=== PATIENT | male | born 1990 | race Caucasian/White ===

== ENCOUNTER 2016-12-22 14:21 | Emergency (ER) | payer OTHER ==
[~2016-12-22] VITALS: Wt 101.0 kg
[2016-12-22] MEDS ORDERED: ACETAMINOPHEN 500 MG TAB PO STA (16:50)
--- NOTE | 2016-12-22 17:27 | ERD ---
ER Documentation Chief Complaint Date/Time DATE: 12/22/16 TIME: 17:25 Chief Complaint RECHECK OF LAC HPI 26-year-old male comes in for winter for lacerations of both of his hands occurred 2 days ago. He was seen here 2 days ago had a CT scan of the brain due to her mental status. He had an episode where he states that he does not recall exactly what happened. He denies pain to his hands, drainage or fevers or chills. ROS All systems reviewed and are negative except as per history of present illness. Medications Home Meds Unable to Obtain Active Prescriptions or Reported Meds Allergies Allergies: Coded Allergies: No Known Allergy (Unverified , 12/19/16) PMhx/Soc Medical and Surgical Hx: pt denies Medical Hx, pt denies Surgical Hx Hx Psychiatric Problems: Yes Hx Alcohol Use: No Hx Substance Use: Yes Hx Tobacco Use: Yes Smoking Status: Current every day smoker Physical Exam Vitals Vital Signs Date Time Temp Pulse Resp B/P Pulse Ox O2 Delivery O2 Flow Rate FiO2 12/22/16 14:37 98.0 120 18 132/83 99 Physical Exam General: Well-developed, well-nourished. The patient appears in no acute distress. HEENT: Head is normocephalic, atraumatic. No scleral icterus. Neck: Supple. Nontender. Lungs: Clear to auscultation. Normal air movement. Heart: Regular rate and rhythm. S1 and S2 are normal. No murmurs, gallops, or rubs. Abdomen: Nondistended. Extremities: Left second digit has medial laceration is about 3 cm, without dehiscence, erythema or drainage. The right fourth digit proximal laceration, about 2.5 cm with sutures intact no dehiscence or erythema, wounds are clean dry and intact. Patient is able to make a fist, sensation is intact distally, capillary refill less than 2 seconds. No clubbing or cyanosis. Moving extremities x 4. No weakness. Neurologic: Alert and oriented 3. No focal deficits. Normal speech and gait. Skin: Normal turgor. No rash or lesions. Results 24 hrs Current Medications Medications (Trade) Dose Ordered Sig/Aidee Route PRN Reason Start Time Stop Time Status Last Admin Dose Admin Acetaminophen (Tylenol Tab) 1,000 mg ONCE STAT PO 12/22/16 16:50 12/22/16 16:51 DC 12/22/16 16:55 Procedures/MDM Course: Wound care was done, irrigation as well as application of Steri-Strips and clean dressing and gauze. Wound shows no evidence of infection, foreign body, neurologic injury, vascular injury, open joint or tendon laceration. Patient appropriate for outpatient follow up. Departure Diagnosis: Primary Impression: Encounter for wound re-check Condition: Good Patient Instructions: Wound Check, Lac F/U (No Infection) Additional Instructions: Follow up with your physician to remove the stitches: in 6 days. VICKY MAGANA PA-C Dec 22, 2016 17:27
== END 2016-12-22 16:58 | disposition home or self-care (01) ==
LOC: FTE 14:21
DX: Z48.01 Encounter for change or removal of surgical wound dressing (principal); F17.210 Nicotine dependence, cigarettes, uncomplicated
CPT/HCPCS: Z7502; Z7610; 99282

== ENCOUNTER 2016-12-31 14:09 | Emergency (ER) | payer SELFPAY ==
[~2016-12-31] VITALS: Ht 175.3 cm; Wt 99.0 kg
[2016-12-31 14:13] VITALS: Ht 175.3 cm; Wt 99.0 kg
== END 2016-12-31 16:05 | disposition left against medical advice (07) ==
LOC: E/R 14:09 → FTE 16:05
DX: Z53.21 Procedure and treatment not carried out due to patient leaving prior to being seen by health care provider (principal)

== ENCOUNTER 2018-06-23 18:41 | Inpatient (IN) | payer OTHER ==
[~2018-06-23] VITALS: Ht 185.4 cm; Wt 106.0 kg
[2018-06-23] MEDS ORDERED: SOD CHLORIDE 0.9% 1,000 ML IV STA (20:14)
[2018-06-23] MEDS ORDERED: OLANZAPINE (ODT) 5 MG TAB ODT STA (20:14)
[2018-06-23] MEDS ORDERED: HYDROCODONE/APAP (5/325) TAB PO ONE (20:30)
[2018-06-23] MEDS ORDERED: PIPER-TAZO 3.375 GM IV (PMX) 100 ML IVPB STA (22:28)
[2018-06-23] MEDS ORDERED: SOD CHLORIDE 0.9% 1,000 ML IV SCH (22:34)
--- NOTE | 2018-06-23 22:39 | ERD ---
ER Documentation Chief Complaint Chief Complaint AP X WEEKS HPI This is a 27-year-old male with no previous medical problems who presents to the emergency room for evaluation of abdominal pain. The patient states that he has had abdominal pain on and off for the past 2 weeks however his pain got worse over the past 24 hours. The patient localizes the pain to the right portion of his abdomen and states it is an achy pain associate with mild nausea no vomiting. The patient denies any fevers or chills or diarrhea associated with this pain. The patient came to the ER today for evaluation of his symptoms. ROS All systems reviewed and are negative except as per history of present illness. Medications Home Meds Unable to Obtain Active Prescriptions or Reported Meds Allergies Allergies: Coded Allergies: No Known Allergy (Unverified , 12/19/16) PMhx/Soc Medical and Surgical Hx: pt denies Medical Hx, pt denies Surgical Hx Hx Psychiatric Problems: Yes Hx Alcohol Use: No Hx Substance Use: Yes Hx Tobacco Use: Yes Smoking Status: Light tobacco smoker Physical Exam Vitals Vital Signs Date Temp Pulse Resp B/P (MAP) Pulse Ox O2 O2 Flow FiO2 Time Delivery Rate 06/23/18 97.7 89 20 167/89 99 19:00 (115) Physical Exam INITIAL VITAL SIGNS: Reviewed by me GENERAL: The patient is well developed and appropriate for usual state of health in no apparent distress HEENT: Pupils equal, round, and reactive to light. EOMI. There is no scleral icterus. NECK: C-spine is soft and supple, there is no meningismus. There is no cerv ical lymphadenopathy. LUNGS: Clear to auscultation bilaterally. There are no rales, wheezes or rhon chi. HEART: Regular rate and rhythm, no murmurs, clicks, rubs or gallops. ABDOMEN: Right lower quadrant tenderness to palpation, bowel sounds in all 4 quadrants. EXTREMITIES: There is no peripheral cyanosis or edema. No focal swelling or erythema. NEUROLOGICAL: The patient moves all four extremities with 5/5 strength. Cranial nerves II - XII are intact. Normal gait. Alert and oriented SKIN: There is no apparent rash or petechiae. HEME/LYMPHATIC: There is no evidence of excessive bruising or lymphedema. PSYCHIATRIC: The patient does not appear anxious or depressed. Result Diagram: 06/23/18201806/23/182018 Results 24 hrs Laboratory Tests Test 06/23/18 20:19 White Blood Count 17.2 10^3/ul Red Blood Count 5.42 10^6/ul Hemoglobin 17.4 g/dl Hematocrit 48.5 % Mean Corpuscular Volume 89.5 fl Mean Corpuscular Hemoglobin 32.1 pg Mean Corpuscular Hemoglobin Concent 35.9 g/dl Red Cell Distribution Width 10.8 % Platelet Count 209 10^3/UL Mean Platelet Volume 11.1 fl Immature Granulocytes % 0.600 % Neutrophils % 80.1 % Lymphocytes % 13.7 % Monocytes % 4.0 % Eosinophils % 1.2 % Basophils % 0.4 % Nucleated Red Blood Cells % 0.0 /100WBC Immature Granulocytes # 0.110 10^3/ul Neutrophils # 13.8 10^3/ul Lymphocytes # 2.4 10^3/ul Monocytes # 0.7 10^3/ul Eosinophils # 0.2 10^3/ul Basophils # 0.1 10^3/ul Nucleated Red Blood Cells # 0.0 10^3/ul Urine Color JEREMIAH Urine Clarity TURBID Urine pH 7.0 Urine Specific [place] 1.024 Urine Ketones NEGATIVE mg/dL Urine Nitrite NEGATIVE mg/dL Urine Bilirubin NEGATIVE mg/dL Urine Urobilinogen 1+ mg/dL Urine Leukocyte Esterase NEGATIVE Eunice/ul Urine Microscopic RBC 3 /HPF Urine Microscopic WBC 0 /HPF Urine Hemoglobin NEGATIVE mg/dL Urine Glucose NEGATIVE mg/dL Urine Total Protein NEGATIVE mg/dl Sodium Level 144 mmol/L Potassium Level 4.5 mmol/L Chloride Level 105 mmol/L Carbon Dioxide Level 25 mmol/L Anion Gap 14 Blood Urea Nitrogen 13 mg/dl Creatinine 1.04 mg/dl Est Glomerular Filtrat Rate mL/min > 60 mL/min Glucose Level 109 mg/dl Calcium Level 10.5 mg/dl Total Bilirubin 0.3 mg/dl Direct Bilirubin 0.00 mg/dl Indirect Bilirubin 0.3 mg/dl Aspartate Amino Transf (AST/SGOT) 45 IU/L Alanine Aminotransferase (ALT/SGPT) 111 IU/L Alkaline Phosphatase 70 IU/L Total Protein 8.2 g/dl Albumin 5.0 g/dl Globulin 3.20 g/dl Albumin/Globulin Ratio 1.56 Lipase 96 U/L Current Medications Medications Dose Sig/Aidee Start Time Status Last (Trade) Ordered Route PRN Stop Time Admin Dose Reason Admin 1 tab ONCE ONCE 06/23/18 DC 06/23/18 Acetaminophen PO 20:30 22:10 / 06/23/18 20:31 Hydrocodone Bitart ([place] (5/325)) Sodium 1,000 ml @ Q1H STAT 06/23/18 DC 06/23/18 Chloride 1,000 mls/hr IV 20:14 22:11 06/23/18 21:13 Olanzapine 10 mg ONCE STAT 06/23/18 DC 06/23/18 (Zyprexa ODT 20:14 22:10 Zydis) 06/23/18 20:15 Piperacillin 100 ml @ ONCE STAT 06/23/18 Sod/ 200 mls/hr IVPB 22:28 Tazobactam 06/23/18 22:57 Sod Procedures/MDM CT abdomen pelvis without : 1. The base of the body of the appendix are unremarkable. There is minimal dilatation of the tip of the appendix which measures 8 mm. There is no significant periappendiceal inflammation. The overall appearance is likely within normal limits; however a very mild / early tip appendicitis cannot be completely excluded and clinical correlation is advised. 2. No free fluid, free air, abscess. 3. Fatty change of the liver This 27-year-old male presents to the ER for evaluation of abdominal pain. On my exam the patient had tenderness to palpation in the right lower quadrant. He was originally seen in fast track area and after CAT scan was transition to the main emergency room. On my exam the patient did have tenderness palpation in the right lower quadrant. He does have a leukocytosis. And CT does show what could be early appendicitis. I have spoken to our general surgeon internal combustion engine assembler Dr. Willett have written the case by him. He states that he will evaluate the patient. The patient is stable and will be admitted to our panel physician Dr. Murphy. Critical Care: Excluding all billable procedures Time: 33 minutes Treatments/Evaluations: Close monitoring and treatment of unstable vital signs, cardiorespiratory, and neurologic status, while maintaining tight balance of fluid, respiratory, and cardiac interventions. Departure Diagnosis: Primary Impression: Acute appendicitis Additional Impression: Abdominal pain Condition: Stable STEPHANIEVICENTA CHAUDHARYANTON SCHUMACHER Jun 23, 2018 22:39
[2018-06-23] MEDS ORDERED: ONDANSETRON 4 MG INJ IV PRN ×2 (23:00→23:30)
[2018-06-23] MEDS ORDERED: ACETAMINOPHEN 325 MG TAB PO PRN ×2 (23:00→23:30)
--- NOTE | 2018-06-23 23:14 | HP ---
Date/Time of Note Date/Time of Note DATE: 06/23/18 TIME: 23:11 Assessment/Plan VTE Prophylaxis SCD applied (from Nsg): Yes Pharmacological prophylaxis: NA/contraindicated Pharm contraindication: low risk/ambulating Lines/Catheters IV Catheter Type (from Nrsg): Saline Lock Assessment/Plan Hospital Course This is a 27 year old male being admitted to the med surg floor for: #1 suspect early appendicitis: NPO except meds, Normal saline maintenence fluids, zosyn 3.375 mg iv q 6hrs. Pain control. Dr. Willett consulted by the ER. #2 Obesity: check a1c, tsh, lipids #3 DVT GI prophylaxis: SCDs, no GI prophylaxis indicated Further treatment strategy will be implemented as per the clinical course Result Diagram: 06/23/18201806/23/182018 Results 24hrs Laboratory Tests Test 06/23/18 20:19 White Blood Count 17.2 H Red Blood Count 5.42 Hemoglobin 17.4 Hematocrit 48.5 Mean Corpuscular Volume 89.5 Mean Corpuscular Hemoglobin 32.1 Mean Corpuscular Hemoglobin Concent 35.9 Red Cell Distribution Width 10.8 L Platelet Count 209 Mean Platelet Volume 11.1 H Immature Granulocytes % 0.600 H Neutrophils % 80.1 H Lymphocytes % 13.7 L Monocytes % 4.0 Eosinophils % 1.2 Basophils % 0.4 Nucleated Red Blood Cells % 0.0 Immature Granulocytes # 0.110 H Neutrophils # 13.8 H Lymphocytes # 2.4 Monocytes # 0.7 Eosinophils # 0.2 Basophils # 0.1 Nucleated Red Blood Cells # 0.0 Urine Color JEREMIAH Urine Clarity TURBID A Urine pH 7.0 Urine Specific [place] 1.024 Urine Ketones NEGATIVE Urine Nitrite NEGATIVE Urine Bilirubin NEGATIVE Urine Urobilinogen 1+ H Urine Leukocyte Esterase NEGATIVE Urine Microscopic RBC 3 Urine Microscopic WBC 0 Urine Hemoglobin NEGATIVE Urine Glucose NEGATIVE Urine Total Protein NEGATIVE Sodium Level 144 Potassium Level 4.5 Chloride Level 105 Carbon Dioxide Level 25 Anion Gap 14 H Blood Urea Nitrogen 13 Creatinine 1.04 Est Glomerular Filtrat Rate mL/min > 60 Glucose Level 109 Calcium Level 10.5 H Total Bilirubin 0.3 Direct Bilirubin 0.00 Indirect Bilirubin 0.3 Aspartate Amino Transf (AST/SGOT) 45 Alanine Aminotransferase (ALT/SGPT) 111 H Alkaline Phosphatase 70 Total Protein 8.2 H Albumin 5.0 H Globulin 3.20 Albumin/Globulin Ratio 1.56 Lipase 96 HPI/ROS Admit Date/Time Admit Date/Time Hx of Present Illness cc: ab pain x 2 weeks This is a 27-year-old male with no previous medical problems who presents to the emergency room for evaluation of abdominal pain. The patient states that he has had abdominal pain on and off for the past 2 weeks however his pain got worse over the past 24 hours. The patient localizes the pain to the right portion of his abdomen and states it is an achy pain associate with mild nausea no vom iting. The patient denies any fevers or chills or diarrhea associated with this pain. The patient came to the ER today for evaluation of his symptoms. Allergies: NKDA Medications: None ROS Const: As per HPI Eyes : No pain discharge or redness or change in visual acuity ENT: No pain, sore throat, congestion, congestion, dysphagia or discharge Respiratory: No shortness of breath, cough, sputum, wheezing, or pleuritic pain Cardiovascular: No chest pain, palpitation, PND, or edema GI : as per HPI Genitourinary: No dysuria, hematuria, flank pain , discharge or CVA tenderness Musculoskeletal: No joint pain, back pain, neck pain, restricted range of motion in neck or joints Skin: No rash, bruising or hives Neuro: No headache, dizziness, syncope, seizure, focal weakness Endocrine: No polyuria, polydipsia, temperature intolerance Psych: No hallucination, depression, anxiety or suicidal ideation PMH/Family/Social Past Medical History Medical History: no pertinent history Medications Current Medications Sodium Chloride 1,000 ml @ 80 mls/hr [id number] IV ; Start 06/23/18 at 22:34; Stop 06/24/18 at 11:03 Ondansetron HCl (Zofran Inj) 4 mg BRIDGE ORDER PRN IV NAUSEA/VOMITING; Start 06/23/18 at 23:00; Stop 06/24/18 at 22:59 Acetaminophen (Tylenol Tab) 650 mg ER BRIDGE PRN PO .MILD PAIN 1-3 OR TEMP; Start 06/23/18 at 23:00; Stop 06/24/18 at 22:59 Coded Allergies: No Known Allergy (Unverified , 12/19/16) Past Surgical History Past Surgical Hx: no surgical history Family History Significant Family History: no pertinent family hx Social History Alcohol Use: occasionally Smoking Status: Unknown if ever smoked Drug Use: none Exam/Review of Systems Vital Signs Vitals Vital Signs Date Temp Pulse Resp B/P (MAP) Pulse Ox O2 O2 Flow FiO2 Time Delivery Rate 06/23/18 97.7 89 20 167/89 99 19:00 (115) Exam Exam General: Patient currently lying in bed in no acute distress HEENT: Atraumatic, normocephalic. The pupils are equal, round and reactive. Extraocular motor are intact Neck: Supple with full range of motion. No rigidity or meningismus Chest: Nontender Lungs: Clear to auscultation bilaterally no crackles rales or wheezing Heart: Normal S1-S2, Regular rhythm and rate. Abdomen: Soft , tender to palpation over the right lower quadrant, nondistended , bowel sounds are present. No guarding no rebound tenderness , No masses or organomegaly. No costovertebral temporal angle mass Extremities: Normal to inspection, no edema no cyanosis Neurologic: Normal mental status, speech normal, cranial nerves II through XII are intact, motor and sensory are intact, no focal weakness Additional Comments PROCEDURE: CT abdomen and pelvis without contrast. CLINICAL INDICATION: Right lower quadrant abdominal pain TECHNIQUE: Continues 2.5 mm axial images were obtained from the domes of the diaphragms to the inferior pubic rami. No oral or intravenous contrast was administered. The calculated dose length product (DLP) = 1367.85 mGy-cm. Exam CTDlvol = 20.08 mGy. One or more of the following dose reduction techniques were used: Automated exposure control, adjustment of the mA and or KV according to patient size, or use of iterative reconstruction technique. One or more of the following dose reduction techniques were used: Automated exposure control, adjustment of the mA and or KV according to patient size, or use of iterative reconstruction technique. DICOM images are available. COMPARISON: None. FINDINGS: Lung bases are clear. No pleural pericardial fluid is seen. There is mild fatty change of the liver. Otherwise, liver, gallbladder, pancreas, spleen, adrenals, and kidneys are within normal limits on this noncontrast study. There is no renal calculi or obstructive uropathy. Aorta is normal in caliber. No pathologically enlarged mesenteric lymph nodes are seen. Stomach and small bowel loops are within normal limits. Is no small bowel dilatation or obstruction. No free fluid, free air, abscess is noted in the upper abdomen CT pelvis: Images through the pelvis demonstrate no free fluid, free air, abscess. Bladder is normally distended grossly unremarkable. Prostate and seminal vesicles are within normal limits. Evaluation of the colon demonstrates no diverticulosis, diverticulitis or acute colitis. The appendix is identified. The base of the body and appendix are normal in appearance. The tip of the appendix is minimally dilated measuring 8 mm. There is no significant periappendiceal inflammation. All vessels likely within normal limits, very early mild tip appendicitis cannot be completely excluded. Terminal ileum is unremarkable. There are no pathologically enlarged iliac chain lymph nodes. No destructive bony lesions are seen IMPRESSION: 1. The base of the body of the appendix are unremarkable. There is minimal dilatation of the tip of the appendix which measures 8 mm. There is no significant periappendiceal inflammation. The overall appearance is likely within normal limits; however a very mild / early tip appendicitis cannot be completely excluded and clinical correlation is advised. 2. No free fluid, free air, abscess. 3. Fatty change of the liver RPTAT: HH .Cuco Alaniz MD, Date Time Electronically viewed and signed by .Cuco Alaniz MD, MD on 06/23/2018 21:38 .W/ CC: DONALD BUSTOS PA-C [id number] LOPEZ JOSE Jun 23, 2018 23:14
[2018-06-23] MEDS ORDERED: BISACODYL (EC) 5 MG TAB PO PRN (23:30)
[2018-06-23] MEDS ORDERED: NACL 0.9% 3 ML SYG IV SCH (23:30)
[2018-06-23] MEDS ORDERED: morphine 2 MG INJ IV PRN (23:30)
[2018-06-23] MEDS ORDERED: DOCUSATE SODIUM 100 MG CAP PO PRN (23:30)
[2018-06-24] VITALS (25 sets, daily range): BP systolic 97–187; BP diastolic 55–96; PULSE 58–104; RESP 12–28; Ht 185.4 cm; Wt 106.0 kg
[2018-06-24] MEDS: SOD CHLORIDE 0.9% 1,000 ML IV SCH ×3 (00:56→23:43)
[2018-06-24] MEDS: PIPER-TAZO 3.375 GM IV (PMX) 100 ML IVPB SCH ×4 (04:34→23:42)
--- NOTE | 2018-06-24 11:25 | PN ---
Date/Time of Note Date/Time of Note DATE: 06/24/18 TIME: 11:24 Objective Vitals Vital Signs Date Temp Pulse Resp B/P (MAP) Pulse Ox O2 O2 Flow FiO2 Time Delivery Rate 06/24/18 97.9 58 18 108/55 96 08:10 (72) Intake and Output 06/23/18 06/23/18 06/24/18 1515:00 23:00 07:00 IntakeIntake Total 500 ml BalanceBalance 500 ml Results Result Diagram: 06/24/18 0446 06/24/18 0446 Medications Medications Current Medications Ondansetron HCl (Zofran Inj) 4 mg BRIDGE ORDER PRN IV NAUSEA/VOMITING; Start 06/23/18 at 23:00; Stop 06/24/18 at 22:59 Acetaminophen (Tylenol Tab) 650 mg ER BRIDGE PRN PO .MILD PAIN 1-3 OR TEMP; Start 06/23/18 at 23:00; Stop 06/24/18 at 22:59 Sodium Chloride 1,000 ml @ 100 mls/hr Q10H IV Last administered on 06/24/18at 00:56; Admin Dose 100 MLS/HR; Start 06/23/18 at 23:07 IV Flush (NS 3 ml) 3 ml PER PROTOCOL IV ; Start 06/23/18 at 23:30 Ondansetron HCl (Zofran Inj) 4 mg Q6H PRN IV NAUSEA/VOMITING; Start 06/23/18 at 23:30 Acetaminophen (Tylenol Tab) 650 mg Q6H PRN PO .PAIN 1-3 OR TEMP; Start 06/23/18 at 23:30 Morphine Sulfate (morphine) 2 mg Q4H PRN IV .SEVERE PAIN 7-10 Last administered on 06/24/18at 00:56; Admin Dose 2 MG; Start 06/23/18 at 23:30 Docusate Sodium (Colace) 100 mg Q12H PRN PO .CONSTIPATION; Start 06/23/18 at 23:30 Bisacodyl (Dulcolax) 5 mg DAILY PRN PO .CONSTIPATION; Start 06/23/18 at 23:30 Piperacillin Sod/ Tazobactam Sod 100 ml @ 200 mls/hr Q6 IVPB Last administered on 06/24/18at 04:34; Admin Dose 200 MLS/HR; Start 06/24/18 at 05:00 VTE Prophylaxis Risk score (from Nsg)>0 risk: 1 SCD applied (from [facility] [place]): Yes Lines/Catheters IV Catheter Type: [place] in Place: No Assessment/Plan Hospital Course Subjective Patient states abdominal pain has significantly improved Objective Physical exam General: Patient is laying in bed and answers questions appropriately Mentation: Patient is alert and oriented 4, Head: Normocephalic atraumatic Eyes: EOMI, pupils reactive to light Neck: Supple, nontender, midline Respiratory: Clear to auscultation bilaterally Cardiovascular: regular rate, no obvious murmurs Gastrointestinal: minimal right lower quadrant tenderness to palpation, bowel sounds heard. Neurological: Moves all extremities spontaneously Skin: No new skin lesions Assessment and plan Abdominal pain, possible early appendicitis -N.p.o. -IV fluids -IV Zosyn -Dr. Willett, general surgery consulted by ER Obesity -Monitor, encourage dietary restrictions Disposition -Awaiting general surgery consultation. SONIA MAGANA Jun 24, 2018 11:24
--- NOTE | 2018-06-24 16:15 | PREAC ---
Date/Time of Note Date/Time of Note DATE: 06/24/18 TIME: 16:14 Anesthesia Eval and Record Evaluation Time Pre-Procedure Interview DATE: 06/24/18 TIME: 16:14 Age 27 Sex male NPO: 8 hrs Preoperative diagnosis appendicitis: Planned procedure LAPAROSCOPIC APPENDECTOMY Past Medical History Past Medical History: Includes GI: Obesity Surgery & Anesthesia Issues No known issue Meds Anticoagulation: No Beta Adithya within 24 hr: No Reason Beta Adithya not given: Pt. not on B-Adithya Unable to Obtain Active Prescriptions or Reported Meds Current Medications Ondansetron HCl (Zofran Inj) 4 mg BRIDGE ORDER PRN IV NAUSEA/VOMITING; Start 06/23/18 at 23:00; Stop 06/24/18 at 22:59 Acetaminophen (Tylenol Tab) 650 mg ER BRIDGE PRN PO .MILD PAIN 1-3 OR TEMP; Start 06/23/18 at 23:00; Stop 06/24/18 at 22:59 Sodium Chloride 1,000 ml @ 100 mls/hr Q10H IV Last administered on 06/24/18at 11:37; Admin Dose 100 MLS/HR; Start 06/23/18 at 23:07 IV Flush (NS 3 ml) 3 ml PER PROTOCOL IV ; Start 06/23/18 at 23:30 Ondansetron HCl (Zofran Inj) 4 mg Q6H PRN IV NAUSEA/VOMITING; Start 06/23/18 at 23:30 Acetaminophen (Tylenol Tab) 650 mg Q6H PRN PO .PAIN 1-3 OR TEMP; Start 06/23/18 at 23:30 Morphine Sulfate (morphine) 2 mg Q4H PRN IV .SEVERE PAIN 7-10 Last administered on 06/24/18at 00:56; Admin Dose 2 MG; Start 06/23/18 at 23:30 Docusate Sodium (Colace) 100 mg Q12H PRN PO .CONSTIPATION; Start 06/23/18 at 23:30 Bisacodyl (Dulcolax) 5 mg DAILY PRN PO .CONSTIPATION; Start 06/23/18 at 23:30 Piperacillin Sod/ Tazobactam Sod 100 ml @ 200 mls/hr Q6 IVPB Last administered on 06/24/18at 11:37; Admin Dose 200 MLS/HR; Start 06/24/18 at 05:00 Meds reviewed: Yes Allergies Coded Allergies: No Known Allergy (Unverified , 12/19/16) Allergies Reviewed: Yes Labs/Studies Labs Reviewed: Reviewed by anesthesiologist Result Diagram: 06/24/18 0446 06/24/18 0446 Laboratory Tests 06/24/18 04:46 test: N/A Pre-procedure Exam Last vitals Vital Signs Date Temp Pulse Resp B/P (MAP) Pulse Ox O2 O2 Flow FiO2 Time Delivery Rate 06/24/18 97.9 63 19 97/55 (69) 96 14:00 Airway: Adequate mouth opening Mallampati: Mallampati II Teeth: Normal Lung: Normal Heart: Normal ASA Physical Status ASA physical status: 2 Emergency: None Pre-operative Attestations Prior to commencing anesthesia and surgery, the patient was re-evaluated, there was verification of: *The patient's identity *The results of appropriate recent lab work and preoperative vital signs *The above evaluation not changing prior to induction *Anesthetic plan, risk benefits, alternative and complications discussed with patient/family; questions answered; patient/family understands, accepts and wishes to proceed. GEOVANNI SHIPMAN Jun 24, 2018 16:15
[2018-06-24] MEDS ORDERED: FENTAnyl 50 MCG/ML VIAL ONE (20:29)
[2018-06-24] MEDS ORDERED: LIDOCAINE 1% (MPF) 30 ML INJ ONE (20:31)
[2018-06-24] MEDS ORDERED: BUPIVACAINE 0.5%/EPI (SDV) 30 ML INJ ONE (20:31)
[2018-06-24] MEDS ORDERED: ROPIVACAINE 0.5 % 30 ML VIAL ONE (20:31)
--- NOTE | 2018-06-24 20:36 | CONS ---
Assessment/Plan Assessment/Plan Hospital Course (Demo Recall) 1. Abdominal pain 2. Leukocytosis 3. CT with diagnosis of acute appendicitis, early tip. I had a long discussion with patient regarding his options and possibilities. Since this is recurrent patient would like to proceed with appendectomy. He understands that this may not be the source. -IV antibiotics -IV fluids -N.p.o. -OR for appendectomy 4. BMI 31 -Encourage nutrition and exercise optimization Thank you very much for consulting me in this patient's care, Consultation Date/Type/Reason Admit Date/Time Date of Consultation: Jun 24, 2018 Type of Consult General surgical Reason for Consultation Abdominal pain Leukocytosis Early tip appendicitis BMI 31 Requesting Provider: LOPEZ JOSE Date/Time of Note DATE: 06/24/18 TIME: 20:31 Hx of Present Illness Leann Griffin is a 27-year-old male who presents to the emergency room for evaluation of abdominal pain that he has had on and off for the past 2 weeks, however worse over the past 24 hours. Pain is in the right lower quadrant without associated nausea vomiting fevers chills cough seizure blood per mouth or rectum. No dysuria. No trauma or sick contacts. No dysuria. Patient has had this pain over the past 2 years once a year. His workup identifies acute early tip appendicitis with leukocytosis. He is admitted on antibiotics and surgical consult is obtained further evaluation and treatment. 12 point review of system is negative unless otherwise addressed in chart Past Medical History Recurrent abdominal pain BMI 31 Acute leukocytosis Home Meds Unable to Obtain Active Prescriptions or Reported Meds Medications Current Medications Ondansetron HCl (Zofran Inj) 4 mg BRIDGE ORDER PRN IV NAUSEA/VOMITING; Start 06/23/18 at 23:00; Stop 06/24/18 at 22:59 Acetaminophen (Tylenol Tab) 650 mg ER BRIDGE PRN PO .MILD PAIN 1-3 OR TEMP; Start 06/23/18 at 23:00; Stop 06/24/18 at 22:59 Sodium Chloride 1,000 ml @ 100 mls/hr Q10H IV Last administered on 06/24/18at 11:37; Admin Dose 100 MLS/HR; Start 06/23/18 at 23:07 IV Flush (NS 3 ml) 3 ml PER PROTOCOL IV ; Start 06/23/18 at 23:30 Ondansetron HCl (Zofran Inj) 4 mg Q6H PRN IV NAUSEA/VOMITING; Start 06/23/18 at 23:30 Acetaminophen (Tylenol Tab) 650 mg Q6H PRN PO .PAIN 1-3 OR TEMP; Start 06/23/18 at 23:30 Morphine Sulfate (morphine) 2 mg Q4H PRN IV .SEVERE PAIN 7-10 Last administered on 06/24/18at 00:56; Admin Dose 2 MG; Start 06/23/18 at 23:30 Docusate Sodium (Colace) 100 mg Q12H PRN PO .CONSTIPATION; Start 06/23/18 at 23:30 Bisacodyl (Dulcolax) 5 mg DAILY PRN PO .CONSTIPATION; Start 06/23/18 at 23:30 Piperacillin Sod/ Tazobactam Sod 100 ml @ 200 mls/hr Q6 IVPB Last administered on 06/24/18at 17:02; Admin Dose 200 MLS/HR; Start 06/24/18 at 05:00 Allergies: Coded Allergies: No Known Allergy (Unverified , 12/19/16) Past Surgical History Past Surgical Hx: no surgical history Family History Significant Family History: no pertinent family hx Social History Alcohol Use: occasionally Smoking Status: Unknown if ever smoked Drug Use: none Exam/Review of Systems Exam Vitals Vital Signs Date Temp Pulse Resp B/P (MAP) Pulse Ox O2 O2 Flow FiO2 Time Delivery Rate 06/24/18 97.9 63 19 97/55 (69) 96 14:00 Intake and Output 06/23/18 06/23/18 06/24/18 1515:00 23:00 07:00 IntakeIntake Total 500 ml BalanceBalance 500 ml Constitutional: alert, oriented, obese; No distress Psych: nl mood/affect; No anxiety, No confusion Head: normocephalic, atraumatic Eyes: nl conjunctiva, EOMI, PERRL; No icteric ENMT: nl external ears & nose, nl lips & teeth, mucosa pink and moist Neck: supple, non-tender; No jvd Respiratory: normal air movement; No congested cough, No labored breathing, No wheezing Cardiovascular: regular rate and rhythm; No edema Gastrointestinal: soft, tender (Minimal); No distended, No rebound or guarding Genitourinary - Male: nl penis, nl scrotum Musculoskeletal: nl extremities to inspection, nl gait and stance; No joint tenderness Extremities: normal pulses; No calf tenderness, No cyanosis Neurological: nl mental status, nl speech, nl strength Skin: nl turgor; No rash or lesions, No diaphoresis Lymph: nl lymph nodes Results Result Diagram: 06/24/186 06/24/186 Results 24hrs Laboratory Tests Test 06/24/18 04:46 White Blood Count 9.1 # Red Blood Count 4.80 Hemoglobin 15.3 Hematocrit 43.4 Mean Corpuscular Volume 90.4 Mean Corpuscular Hemoglobin 31.9 Mean Corpuscular Hemoglobin Concent 35.3 Red Cell Distribution Width 11.0 L Platelet Count 168 Mean Platelet Volume 11.6 H Immature Granulocytes % 0.400 Neutrophils % 54.6 Lymphocytes % 35.2 Monocytes % 6.2 Eosinophils % 3.2 Basophils % 0.4 Nucleated Red Blood Cells % 0.0 Immature Granulocytes # 0.040 H Neutrophils # 4.9 Lymphocytes # 3.2 H Monocytes # 0.6 Eosinophils # 0.3 Basophils # 0.0 Nucleated Red Blood Cells # 0.0 Sodium Level 144 Potassium Level 4.4 Chloride Level 110 Carbon Dioxide Level 24 Anion Gap 10 Blood Urea Nitrogen 11 Creatinine 0.84 Est Glomerular Filtrat Rate mL/min > 60 Glucose Level 95 Hemoglobin A1c 4.6 Calcium Level 9.3 Magnesium Level 1.9 Total Bilirubin 0.7 Direct Bilirubin 0.00 Indirect Bilirubin 0.7 Aspartate Amino Transf (AST/SGOT) 33 Alanine Aminotransferase (ALT/SGPT) 88 H Alkaline Phosphatase 50 Total Protein 6.7 # Albumin 4.1 Globulin 2.60 Albumin/Globulin Ratio 1.57 Triglycerides Level 273 H Cholesterol Level 173 LDL Cholesterol, Calculated 88 HDL Cholesterol 30 Cholesterol/HDL Ratio 5.7 Thyroid Stimulating Hormone (TSH) 4.370 Medications Medication Current Medications Ondansetron HCl (Zofran Inj) 4 mg BRIDGE ORDER PRN IV NAUSEA/VOMITING; Start 06/23/18 at 23:00; Stop 06/24/18 at 22:59 Acetaminophen (Tylenol Tab) 650 mg ER BRIDGE PRN PO .MILD PAIN 1-3 OR TEMP; Start 06/23/18 at 23:00; Stop 06/24/18 at 22:59 Sodium Chloride 1,000 ml @ 100 mls/hr Q10H IV Last administered on 06/24/18at 11:37; Admin Dose 100 MLS/HR; Start 06/23/18 at 23:07 IV Flush (NS 3 ml) 3 ml PER PROTOCOL IV ; Start 06/23/18 at 23:30 Ondansetron HCl (Zofran Inj) 4 mg Q6H PRN IV NAUSEA/VOMITING; Start 06/23/18 at 23:30 Acetaminophen (Tylenol Tab) 650 mg Q6H PRN PO .PAIN 1-3 OR TEMP; Start 06/23/18 at 23:30 Morphine Sulfate (morphine) 2 mg Q4H PRN IV .SEVERE PAIN 7-10 Last administered on 06/24/18at 00:56; Admin Dose 2 MG; Start 06/23/18 at 23:30 Docusate Sodium (Colace) 100 mg Q12H PRN PO .CONSTIPATION; Start 06/23/18 at 23:30 Bisacodyl (Dulcolax) 5 mg DAILY PRN PO .CONSTIPATION; Start 06/23/18 at 23:30 Piperacillin Sod/ Tazobactam Sod 100 ml @ 200 mls/hr Q6 IVPB Last administered on 06/24/18at 17:02; Admin Dose 200 MLS/HR; Start 06/24/18 at 05:00 GORDON PERRY MD Jun 24, 2018 20:36
--- NOTE | 2018-06-24 20:37 | OPR ---
Date/Time of Note Date/Time of Note DATE: 06/24/18 TIME: 20:36 Operative Report Free Text/Dictation Preoperative Diagnosis 1. Acute appendicitis 2. BMI 31 Postoperative Diagnosis 1. Acute mild appendicitis 2. BMI 31 3. Bilateral inguinal hernias Operation Performed 1. Laparoscopic appendectomy 2. [place] anesthetic [place], [id number] Surgeon: GORDON PERRY MD Anesthesia: general (Plus local plus regional) Anesthesiologist: Ronn Vigil MD Estimated Blood Loss: Less than 5 ml's Specimens: Appendix Tubes/Drains None Complications: None Pt Condition Post Procedure: stable Disposition: PACU Indications: Per consult note. Risks include but are not limited to bleeding, infection, abscess, seroma, leak, damage to intestines or any intra-abdominal/intrapelvic structures, hernia formation, chronic pain, need for re-operations or further surgeries, MD, stroke, PE, DVT, pneumonia, organ failures, or even . Procedure Note: Patient was brought into the operating room, placed supine on the operating table, SCDs were placed, left arm was tucked, all pressure points were well- padded, preoperative antibiotics administered, and after induction of anesthesia, patient was prepped and draped in usual sterile fashion, and timeout was performed. Incision was made supraumbilically and the Veress needle was safely place into the abdomen. After negative sip test, abdomen was insufflated to 15 mmHg with CO2. At this point Veress was removed and the 5 mm blunt trocar was placed into the abdomen. Laparoscopy was performed and no injuries were identified using a 5 mm 30 scope. Under direct visualization another 5 mm port was placed and left lower quadrant and 12 mm port and suprapubic region avoiding the bladder. All incision sites were injected with quarter percent Marcaine with 1% lidocaine with epi. Patient was placed in Trendelenburg and right side up. There is bilateral inguinal hernias. The appendix was found to be minimally inflamed. The base was transected using Endo MALOU white load automatic 35 mm stapler just on the cecum. The evelio were fired fully. The mesoappendix was transected with another white load stapler. Hemostasis was fully obtained. The appendix was placed in an Endo Catch bag and removed through the suprapubic port site. That fascia was closed with Endo Close and 0 Vicryl in a [id number] manner avoiding the bladder. Ports and CO2 were removed under direct visualization, wounds were fully irrigated, and skin was closed in subcuticular fashion using 4-0 Monocryl. Dermabond was applied. All counts were correct and the end of the operation 2. Patient was extubated and transferred to recovery room in stable condition. Copies To: CC: DIMITRIS KAPADIA DO; LOPEZ JOSE; SONIA MAGANA ; GORDON PERRY MD Jun 24, 2018 20:37
[2018-06-24] MEDS ORDERED: SUCCINYLCHOLINE CHLORIDE 100 MG/5 ML SYG IV ONE (21:20)
[2018-06-24] MEDS ORDERED: LIDOCAINE 100 MG SYRINGE ONE (21:20)
[2018-06-24] MEDS ORDERED: ROCURONIUM 50 MG INJ ONE (21:20)
[2018-06-24] MEDS ORDERED: SUGAMMADEX SODIUM 200 MG/2 ML VIAL IV ONE (21:20)
[2018-06-24] MEDS ORDERED: PROPOFOL 20 ML ONE (21:20)
[2018-06-24] MEDS ORDERED: KETOROLAC 30 MG INJ IV SCH (21:30)
[2018-06-24] MEDS ORDERED: MEPERIDINE 25 MG INJ ONE (21:47)
[2018-06-24] MEDS ORDERED: HYDROmorphONE 1 MG/5 ML IV SYRINGE IV ONE (21:57)
[2018-06-24] MEDS ORDERED: FENTAnyl 50 MCG/ML VIAL IV PRN ×2 (22:00)
[2018-06-24] MEDS ORDERED: LABETALOL HCL 20MG INJ IV PRN (22:00)
[2018-06-24] MEDS ORDERED: HYDROmorphONE 0.5 MG/0.5 ML SYG IV PRN (22:00)
[2018-06-24] MEDS ORDERED: HYDROmorphONE 1 MG/5 ML IV SYRINGE IV PRN ×3 (22:00)
[2018-06-24] MEDS ORDERED: MEPERIDINE 25 MG INJ IV ONE (22:00)
[2018-06-24] MEDS ORDERED: HYDROCODONE/APAP (5/325) TAB PO PRN (22:00)
[2018-06-24] MEDS ORDERED: hydrALAzine 20 MG INJ IV PRN (22:00)
[2018-06-24] MEDS: FENTAnyl 50 MCG/ML VIAL IV PRN ×2 (22:25→22:48)
[2018-06-24] MEDS: KETOROLAC 30 MG INJ IV SCH (23:42)
[2018-06-25 02:09] VITALS: BP 111/54; PULSE 68; RESP 18
[2018-06-25] MEDS: KETOROLAC 30 MG INJ IV SCH ×2 (06:22→11:45)
[2018-06-25] MEDS: PIPER-TAZO 3.375 GM IV (PMX) 100 ML IVPB SCH ×2 (06:23→11:45)
--- NOTE | 2018-06-25 07:24 | PAC ---
Date/Time of Note Date/Time of Note DATE: 06/25/18 TIME: 07:24 Post-Anesthesia Notes Post-Anesthesia Note Last documented vital signs Vital Signs Date Temp Pulse Resp B/P (MAP) Pulse Ox O2 O2 Flow FiO2 Time Delivery Rate 06/25/18 98.6 68 18 111/54 96 02:09 (73) 06/24/18 Room Air 2.0 23:09 Nasal Cannula Activity: WNL Respiratory function: WNL Cardiovascular function: WNL Mental status: Baseline Pain reasonably controlled: Yes Hydration appropriate: Yes Nausea/Vomiting absent: Yes ABBIE MORRISON Jun 25, 2018 07:24
[2018-06-25 07:57] VITALS: BP 114/58; PULSE 70; RESP 18
[2018-06-25] MEDS: SOD CHLORIDE 0.9% 1,000 ML IV SCH ×2 (08:30→10:16)
--- NOTE | 2018-06-25 13:18 | PDOCDIS ---
Discharge Instructions CONDITION [id number] Patient Condition: [id number] Stable FOLLOW UP/APPOINTMENTS Follow-up Plan 1. Please make an appointment with Dr. Willett, general surgery within 1 week of discharge for follow-up appointment 2. Please pay close attention to increased abdominal pain or fever. Please return to the ED if symptoms worsen 3. Please make an appointment with your primary care provider as soon as possible. SONIA MAGANA Jun 25, 2018 13:18
--- NOTE | 2018-06-25 13:21 | DS ---
Date/Time of Note Date/Time of Note DATE: 06/25/18 TIME: 13:20 Discharge Summary Admission/Discharge Info Admit Date/Time Jun 23, 2018 at 22:35 Discharge Date/Time Patient Condition: Stable Hospital Course Patient is a young male with no significant past medical history who presents to [facility] for abdominal pain. Patient was diagnosed with wayne endicitis treated with IV antibiotics initially and subsequently taken to surgery by general surgeon. Patient had uncomplicated appendicitis with no perforation and uncomplicated surgery. Patient was doing well, had good oral intake, had bowel movement and minimal to no abdominal pain. Patient states that his abdomen he feels fine and is not requiring pain medications. Patient feels well will follow up with general surgeon within 1 week Discharge diagnosis Acute appendicitis, status post appendectomy Obesity, mild Home Meds Unable to Obtain Active Prescriptions or Reported Meds Follow-up Plan 1. Please make an appointment with Dr. Willett, general surgery within 1 week of discharge for follow-up appointment 2. Please pay close attention to increased abdominal pain or fever. Please return to the ED if symptoms worsen 3. Please make an appointment with your primary care provider as soon as possible. Primary Care Provider Care Physician No Primary Time spent on discharge: > 30 minutes Pending Labs Laboratory Tests Test 06/25/18 05:49 06/25/18 06:50 Sodium Level 144 mmol/L (135-144) Potassium Level 4.5 mmol/L (3.5-5.1) Chloride Level 107 mmol/L (97-110) Carbon Dioxide Level 27 mmol/L (21-31) Anion Gap 10 (5-13) Blood Urea Nitrogen 12 mg/dl (7-20) Creatinine 1.05 mg/dl (0.61-1.24) Est Glomerular Filtrat > 60 mL/min (>60) Rate mL/min Glucose Level 79 mg/dl (70-220) Calcium Level 8.8 mg/dl (8.4-10.2) Phosphorus Level 3.7 mg/dl (2.5-4.9) Magnesium Level 1.7 mg/dl (1.7-2.5) White Blood Count 8.4 10^3/ul (4.8-10.8) Red Blood Count 4.51 10^6/ul (4.70-6.10) Hemoglobin 14.4 g/dl (14.0-18.0) Hematocrit 41.2 % (42.0-52.0) Mean Corpuscular Volume 91.4 fl (82.0-101.0) Mean Corpuscular Hemoglobin 31.9 pg (29.0-33.0) Mean Corpuscular 35.0 g/dl (32.0-37.0) Hemoglobin Concent Red Cell Distribution Width 10.9 % (11.5-14.5) Platelet Count 150 10^3/UL (140-415) Mean Platelet Volume 11.3 fl (7.4-10.4) Immature Granulocytes % 0.500 % (0.001-0.429) Neutrophils % 63.6 % (39.0-77.0) Lymphocytes % 27.6 % (15.0-51.0) Monocytes % 6.1 % (0.0-11.0) Eosinophils % 2.0 % (0.0-7.0) Basophils % 0.2 % (0.0-2.0) Nucleated Red Blood Cells % 0.0 /100WBC (0.0-0.0) Immature Granulocytes # 0.040 10^3/ul (0.0-0.031) Neutrophils # 5.4 10^3/ul (1.6-7.5) Lymphocytes # 2.3 10^3/ul (0.8-2.9) Monocytes # 0.5 10^3/ul (0.3-0.9) Eosinophils # 0.2 10^3/ul (0.0-0.5) Basophils # 0.0 10^3/ul (0.0-0.1) Nucleated Red Blood Cells # 0.0 10^3/ul (0.0-0.0) SONIA MAGANA J Jun 25, 2018 13:20
== END 2018-06-25 15:29 | disposition home or self-care (01) | DRG 343 ==
LOC: E/R 18:41 → PP2 22:35
PROVIDERS: ADMIT Family Medicine; ATTEND Internal Medicine
PROC: 0DTJ4ZZ Resection of Appendix, Percutaneous Endoscopic Approach (ICD-10-PCS; principal; 2018-06-24 20:30)
DX: K35.80 Unspecified acute appendicitis (principal); F17.200 Nicotine dependence, unspecified, uncomplicated; Z68.30 Body mass index [BMI] 30.0-30.9, adult; K40.20 Bilateral inguinal hernia, without obstruction or gangrene, not specified as recurrent
CPT/HCPCS: 36415; 74176; 80048; 80053; 80061; 81001; 83036; 83690; 83735; 84100; 84443; 85025; 87040; 88304; J1170; J1885; J2001; J2175; J2270; J2543; J2795; J3010; J7030